=== PATIENT | female | born 1960 | race Caucasian/White ===

== ENCOUNTER 2016-07-15 21:26 | Emergency (ER) | payer SELFPAY ==
[2016-07-15 21:42] VITALS: TEMP 98.1; BMI 29.6
[2016-07-15 22:00] LABS: AUTOMATED BASOPHIL 0.7 % (0-2); AUTOMATED EOSINOPHIL 2.5 % (0-5); AUTOMATED LYMPH 19.9 % (17-44); AUTOMATED MONOCYTE 4.4 % (3-10); AUTOMATED NEUTROPHIL 72.5 % (45-76); MPV 8.9 fL (7.4-10.4)
[2016-07-15 22:21] LABS: BLOOD UREA NITROGEN 15 MG/DL (7-17); CALC CORRECTED 8.8 MG/DL (8.4-10.2); CALCIUM 8.7 MG/DL (8.4-10.2); CALCULATED OSMOLALITY 270 MOs/Kg (270-290); CHLORIDE 103 mEq/L (98-107); GLUCOSE 93 MG/DL (70-99); SODIUM LEVEL 140 mEq/L (137-146); TOTAL PROTEIN 7.6 G/DL (6.3-8.2)
[2016-07-15] MEDS ORDERED: SODIUM CHLORIDE 0.9% 10 ML FLUSH FLUSH PRN (23:01)
[2016-07-15] MEDS ORDERED: PANTOPRAZOLE 40 MG VIAL IV ONE (23:02)
[2016-07-15] MEDS ORDERED: MORPHINE 4 MG/ML INJECTION IV ONE (23:02)
[2016-07-15] MEDS ORDERED: ONDANSETRON HCL 4 MG/2 ML VIAL IV ONE (23:02)
[2016-07-15] MEDS ORDERED: GLUCAGON 1 MG VIAL IV ONE (23:09)
--- NOTE | 2016-07-15 23:09 | EDPRACDOC ---
- General Information Information Source: Patient Mode Of Arrival: Car - History of Present Illness Onset: 2.5 HOURS Pain Location: Reports: Epigastric Pain Context: Reports: After Eating Pain Severity: Moderate Pain Quality: Reports: Sharp, Stabbing Pain Radiation: Reports: No Radiation : No (HYSTERECTOMY) Adult Abdominal History: Denies: Abdominal Surgery, Urolithiasis, Bowel Obstruction, Similar Pain (dx) Female Abdominal History: Denies: Abdominal Surgery, UTI, Ectopic, PID, Urolithiasis, Similar Pain (dx) Modifying Factors: improves with: Food Female Associated Signs & Symptoms: Reports: Nausea, Vomiting Oral Intake: Decreased Urinary Output: Normal <Cintia Davila - Last Filed: 07/15/16 23:16> <Tres Yepez - Last Filed: 07/16/16 01:40> - General Information Chief Complaint: Abdominal Pain Stated Complaint: ABDOMINAL PAIN & VOMITING BLOOD Time Seen by Provider: 07/15/16 23:00 Home Medications: Home Medications Amitriptyline HCl 50 mg PO QHS PRN 06/27/16 Gabapentin 300 mg PO TID 06/27/16 Ropinirole HCl 0.5 mg PO BID 06/27/16 Tramadol HCl 100 mg PO TID 06/27/16 Allergies/Adverse Reactions: Allergies Allergy/AdvReac Type Severity Reaction Status Date / Time No Known Allergies Allergy Verified 07/15/16 21:42 - History of Present Illness HPI: Pt states ate a piece of rib and feels like it is stuck in esophagus. Pt states tried to wash it down with water and had severe pain in epigastric area and not able to keep water down. Pt states she did cough up some blood. Recently started Coumadin for A fib. Denies fever, cough, congestion, cp, sob, changes in bowel or bladder, rash. (Cintia Davila) ED Past Medical History - History Reviewed Yes Nurses notes reviewed and agree except as marked - Patient Medical History Musculoskeletal History: Reports: Arthritis Psychological History: Denies: Depression, Substance Use Disorder Systemic History: Reports: Anemia Surgical History: Reports: Cholecystectomy, Hysterectomy (Complete) - Family Medical History Reports: Hypertension, Diabetes, Cancer, Cardiac Disorders. Denies: Stroke - Social Medical History Smoking Status: Heavy tobacco smoker (5 or more cigarettes/day or daily pipe/ cigar) Social History: Denies: Substance Use Disorder ETOH: None Substance Abuse: None <Cintia Davila - Last Filed: 07/15/16 23:16> EDM Review of Systems - Review of Systems Constitutional: No Symptoms Reported. negative: Fever, Chills, Weakness, Fatigue, Loss of Appetite Ears: No Symptoms Reported. negative: Pain, Hearing Loss, Drainage, Ear Pulling Throat: No Symptoms Reported. negative: Pain, Swelling Nose: No Symptoms Reported. negative: Congestion, Bleeding, Discharge, Injection, Swelling, Deformity, Ecchymosis, Tender, Abrasion, Laceration Mouth: No Symptoms Reported. negative: Pain, Drooling Respiratory: No Symptoms Reported. negative: Cough, Brassy Cough, Barky Cough, Shortness of Breath, Wheezing, Hemoptysis Cardiovascular: No Symptoms Reported. negative: Chest Pain, Palpitations, Syncope, Edema, Orthopnea, PND, Skin Mottling, Cyanosis Gastrointestinal: Nausea, Pain, Vomiting Genitourinary: No Symptoms Reported. negative: Dysuria, Hematuria, Frequency, Discharge, Bleeding, Testicular Pain, Neurological: No Symptoms Reported. negative: Headache, Dizziness, Seizure, Numbness, Weakness, Speech Difficulty, Gait Difficulty Musculoskeletal: No Symptoms Reported. negative: Neck, Chestwall, Ribs, Back, Shoulder, Arm, Elbow, Forearm, Wrist, Hand, Pelvis, Hip, Femur, Knee, Leg, Ankle , Foot Integumentary: No Symptoms Reported. negative: Itching, Rash, Bruising, Wound Allergic/Immunologic: No Symptoms Reported. negative: Hives, Itching Hematologic: No Symptoms Reported. negative: Lymphadenopathy, Easy Bruising, Easy Bleeding Psychiatric: No Symptoms Reported. negative: Anxiety, Depression, Hallucinations, Insomnia, Suicidal <Cintia Davila E - Last Filed: 07/15/16 23:16> - Physical Exam Constitutional: Alert Oriented to: Time, Person, Place - HEENT Head: Normal ( normocephalic) Eye Exam: Normal (PERRL, EOMI, Sclera white) Oropharynx: Normal (Pharynx:Moist without exudate,Gums-no swelling) Tympanic Membrane: Normal ENT EAC: Normal Nose: No Symptoms Reported (septum midline) Neck: Normal (FROM, trachea at midline) - Respiratory/Cardiovascular Respiratory: Normal - CTA (BBS clear to auscultation without adventitious sounds ) Cardiovascular: Normal (RRR without murmur, gallop or rub) - GI Auscultation: Normal (NABS) Palpation: Normal (Soft,No rebound or guarding, non distended) Tenderness: Non tender Miller's Sign: Negative - Musculoskeletal Back: Normal (Non-Tender) Extremities: Normal (Normal tone, Pulses 2+ No cyanosis or edema, FROM) - Integumentary Skin: Normal, Warm, Dry Lymphatics: Normal (no adenopathy) - Neurologic Memory Impaired: Normal Motor Function: Normal (Normal tone, Pulses 2+ No cyanosis or edema, FROM) Mood Description: Normal Perception: Normal <Cintia Davila - Last Filed: 07/15/16 23:16> - Differential Diagnosis Gastroenteritis, PUD, Other (FB) - Results 07/15/16 21:45 07/15/16 21:45 <Cintia Davila - Last Filed: 07/15/16 23:16> - Results 07/15/16 21:45 07/15/16 21:45 <Tres Yepez - Last Filed: 07/16/16 01:40> - Results WBC 10.5 xk/uL (3.8-10.8) 07/15/16 21:45 RBC 4.26 xM/uL (4.20-5.40) 07/15/16 21:45 Hgb 10.7 g/dL (12.0-16.0) L 07/15/16 21:45 Hct 33.7 % (36-47) L 07/15/16 21:45 MCV 79 fL (81-99) L 07/15/16 21:45 MCH 25.2 pg (27-32) L 07/15/16 21:45 MCHC 31.8 g/dl (33-36) L 07/15/16 21:45 RDW 18.5 % (11.5-14.5) H 07/15/16 21:45 Plt Count 138 xk/uL (130-400) 07/15/16 21:45 MPV 8.9 fL (7.4-10.4) 07/15/16 21:45 Neut % (Auto) 72.5 % (45-76) 07/15/16 21:45 Lymph % (Auto) 19.9 % (17-44) 07/15/16 21:45 [place]oun % (Auto) 4.4 % (3-10) 07/15/16 21:45 Eos % (Auto) 2.5 % (0-5) 07/15/16 21:45 Baso % (Auto) 0.7 % (0-2) 07/15/16 21:45 Absolute Neuts (auto) 7.56 xk/uL (1.7-8.2) 07/15/16 21:45 Absolute Lymphs (auto) 2.00 xk/uL (0.65-4.75) 07/15/16 21:45 PT 10.6 SEC (9.2-11.2) 07/15/16 23:05 INR 1.0 07/15/16 23:05 APTT 26.9 SEC (22-35) 07/15/16 23:05 Sodium 140 mEq/L (137-146) 07/15/16 21:45 Potassium 4.6 mEq/L (3.5-5.1) 07/15/16 21:45 Chloride 103 mEq/L (98-107) 07/15/16 21:45 Carbon Dioxide 26 mMOL/L (22-33) 07/15/16 21:45 Anion Gap 16 mEq/L (8-16) 07/15/16 21:45 BUN 15 MG/DL (7-17) 07/15/16 21:45 Creatinine 0.90 MG/DL (0.52-1.04) 07/15/16 21:45 Estimated GFR (MDRD) > 60 mL/min (>=60) 07/15/16 21:45 Glucose 93 MG/DL (70-99) 07/15/16 21:45 Calculated Osmolality 270 MOs/Kg (270-290) 07/15/16 21:45 Calcium 8.7 MG/DL (8.4-10.2) 07/15/16 21:45 Corrected Calcium 8.8 MG/DL (8.4-10.2) 07/15/16 21:45 Total Bilirubin 0.3 MG/DL (0.2-1.3) 07/15/16 21:45 AST 29 IU/L (14-36) 07/15/16 21:45 ALT 30 IU/L (9-52) 07/15/16 21:45 Alkaline Phosphatase 96 IU/L (38-126) 07/15/16 21:45 Total Protein 7.6 G/DL (6.3-8.2) 07/15/16 21:45 Albumin 3.9 G/DL (3.5-5.0) 07/15/16 21:45 Lipase 123 U/L (23-300) 07/15/16 21:45 Urine Color Yellow 07/15/16 23:05 Urine Clarity Clear 07/15/16 23:05 Urine pH 7.0 (5.0-8.0) 07/15/16 23:05 Ur Specific [place] 1.015 (1.003-1.035) 07/15/16 23:05 Urine Protein Neg (NEG/TRACE) 07/15/16 23:05 Urine Glucose (UA) Neg (NEGATIVE) 07/15/16 23:05 Urine Ketones Neg (NEGATIVE) 07/15/16 23:05 Urine Occult Blood Neg (NEG/TRACE) 07/15/16 23:05 Urine Nitrite Neg (NEGATIVE) 07/15/16 23:05 Urine Bilirubin Neg (NEGATIVE) 07/15/16 23:05 Urine Urobilinogen <2.0 MG/DL (0-1) 07/15/16 23:05 Ur Leukocyte Esterase Neg (NEGATIVE) 07/15/16 23:05 Urine RBC 2-5 (0-5) 07/15/16 23:05 Urine WBC 0-2 (0-5) 07/15/16 23:05 Lab Results 07/15/16 07/15/16 07/15/16 23:05 23:05 21:45 WBC 10.5 RBC 4.26 Hgb 10.7 L Hct 33.7 L MCV 79 L MCH 25.2 L MCHC 31.8 L RDW 18.5 H Plt Count 138 MPV 8.9 Neut % (Auto) 72.5 Lymph % (Auto) 19.9 [place]oun % (Auto) 4.4 Eos % (Auto) 2.5 Baso % (Auto) 0.7 Absolute Neuts (auto) 7.56 Absolute Lymphs (auto) 2.00 PT 10.6 INR 1.0 APTT 26.9 Sodium Potassium Chloride Carbon Dioxide Anion Gap BUN Creatinine Estimated GFR (MDRD) Glucose Calculated Osmolality Calcium Corrected Calcium Total Bilirubin AST ALT Alkaline Phosphatase Total Protein Albumin Lipase Urine Color Yellow Urine Clarity Clear Urine pH 7.0 Ur Specific [place] 1.015 Urine Protein Neg Urine Glucose (UA) Neg Urine Ketones Neg Urine Occult Blood Neg Urine Nitrite Neg Urine Bilirubin Neg Urine Urobilinogen <2.0 Ur Leukocyte Esterase Neg Urine RBC 2-5 Urine WBC 0-2 07/15/16 21:45 WBC RBC Hgb Hct MCV MCH MCHC RDW Plt Count MPV Neut % (Auto) Lymph % (Auto) [place] % (Auto) Eos % (Auto) Baso % (Auto) Absolute Neuts (auto) Absolute Lymphs (auto) PT INR APTT Sodium 140 Potassium 4.6 Chloride 103 Carbon Dioxide 26 Anion Gap 16 BUN 15 Creatinine 0.90 Estimated GFR (MDRD) > 60 Glucose 93 Calculated Osmolality 270 Calcium 8.7 Corrected Calcium 8.8 Total Bilirubin 0.3 AST 29 ALT 30 Alkaline Phosphatase 96 Total Protein 7.6 Albumin 3.9 Lipase 123 Urine Color Urine Clarity Urine pH Ur Specific [place] Urine Protein Urine Glucose (UA) Urine Ketones Urine Occult Blood Urine Nitrite Urine Bilirubin Urine Urobilinogen Ur Leukocyte Esterase Urine RBC Urine WBC (Cintia Davila) (Tres Yepez) <Cintia Davila - Last Filed: 07/15/16 23:16> - Departure Yes I personally saw and evaluated the patient. Disposition: Trans. to Other Hospital ([facility]) Education/Counseling Given To: Patient Education/Counseling Given Regarding: Diagnosis, Treatment, Prognosis Decision to Transfer Time: 00:51 - Physician Consulted Surgery Time Called: 00:51 Provider Called: Rafael Hurley Time Field Marketing Specialist Returned Call: 00:51 (TRANSFER TO [facility]) Other Time Called: 00:56 Provider Called: (SURGERY AT [facility]) Time Field Marketing Specialist Returned Call: 01:40 (WILL ACCEPT) <Tres Yepez - Last Filed: 07/16/16 01:40> - Departure Condition: Stable Final Diagnosis: Hiatal hernia with obstruction but no gangrene, Volvulus Instructions: Acute Abdominal Pain (ED) Referrals: Viktoria Tan, SENIOR ENGINEERING MANAGER [Primary Care Provider] - One Week
[2016-07-15 23:43] LABS: PARTIAL THROMB. TIME 26.9 SEC (22-35)
[2016-07-15 23:44] LABS: LEUKOCYTES/URINE NEG (NEGATIVE); NITRITE/URINE NEG (NEGATIVE); URINE OCCULT BLOOD NEG (NEG/TRACE); WBC/URINE 0-2 (0-5)
[2016-07-15] MEDS ORDERED: Pharmacy Review for Metformin - IV Contrast Given SCH (23:45)
--- NOTE | 2016-07-16 00:42 | DIRPT ---
CLINICAL DATA: 55-year-old female with pain and hemoptysis. EXAM: CT CHEST WITH CONTRAST TECHNIQUE: Multidetector CT imaging of the chest was performed during intravenous contrast administration. CONTRAST: 80 cc Isovue 370 COMPARISON: CT dated 06/27/2016 FINDINGS: The lungs are clear. No pleural effusion or pneumothorax. The central airways are patent. Mild atherosclerotic calcification of the thoracic aorta. The central pulmonary arteries appear patent. There is no cardiomegaly or pericardial effusion. No hilar or mediastinal adenopathy. There is a large hiatal hernia containing portion of the stomach. There is twisting of the herniated portion of the stomach within the hernia sac. There is inflammatory changes of the esophagus and gastroesophageal junction. There is inflammatory fluid within the hernia sac. A volvulus or an early ischemic process is not excluded. Evaluation for esophageal perforation is limited in the absence of oral contrast. No definite extraluminal gas identified. Clinical correlation and surgical consult is advised. Multiple small lymph nodes noted at the gastroesophageal junction within the hernia sac. The visualized thyroid gland appears unremarkable. There is no axillary adenopathy the chest wall soft tissues appear unremarkable. Cholecystectomy. Stable appearing left renal hypodense lesion, incompletely characterized, likely a cyst. There is degenerative changes of the spine. No acute fracture. IMPRESSION: Large hiatal hernia with inflammatory changes of esophagus and gastroesophageal junction. There is concern for volvulus with associated obstruction of the distal esophagus/ GE junction. An early ischemia or perforation is not excluded. Correlation with clinical exam and surgical consult is advised. These results were called by telephone at the time of interpretation on 07/16/2016 at 12:39 am to MIGUEL GREER, who verbally acknowledged these results. Electronically Signed By: Jose Neal M.D. On: 07/16/2016 00:40
[2016-07-16] MEDS ORDERED: MORPHINE 4 MG/ML INJECTION IV ONE (00:54)
[2016-07-16 01:58] VITALS: BP 132/69; PULSE 80
== END 2016-07-16 02:03 | disposition short-term general hospital (02) ==
LOC: ED 21:26
DX: K44.9 Diaphragmatic hernia without obstruction or gangrene (principal); K56.2 Volvulus; I48.91 Unspecified atrial fibrillation; M19.90 Unspecified osteoarthritis, unspecified site; F17.210 Nicotine dependence, cigarettes, uncomplicated; Z79.01 Long term (current) use of anticoagulants
CPT/HCPCS: 36415; 71260; 80053; 81001; 83690; 85025; 85610; 85730; 96365; 96375; 96376; 99284; A9698; J1610; J2270; J2405; S0164